=== PATIENT | male | born 1965 | race American Indian/Alaskan Native ===

== ENCOUNTER 2016-08-30 11:57 | Emergency (ER) | payer MEDICARE ==
[2016-08-30 11:57] VITALS: BMI 34.2
[2016-08-30 12:12] VITALS: RESP 18
--- NOTE | 2016-08-30 13:23 | C.PDOC ---
History Of Present Illness 50 year old male special needs patient who is minimally verbal, presents to the ED via EMS accompanied by his mother who states the patient's blood pressure has been high today. Patient was complaining of a headache this morning and currently nods "no" when asked if he has pain. As per mother, she noticed his blood pressure has been on the high side and saw Dr. Sanches yesterday who changed the Norvasc from 5 mg to 10 mg, however the pharmacy still gave them 5mg prompting the visit. Denies fever, vomiting, or any other complaints. Time Seen by Provider: 08/30/16 12:00 Chief Complaint (Nursing): High Blood Pressure History Per: Patient, Family (Mother) Onset/Duration Of Symptoms: Days Current Symptoms Are (Timing): Still Present Past Medical History Reviewed: Historical Data, Nursing Documentation, Vital Signs Vital Signs: Last Vital Signs Temp 98.1 F 08/30/16 13:37 Pulse 75 08/30/16 13:37 Resp 18 08/30/16 13:37 BP 183/71 H 08/30/16 13:37 Pulse Ox 99 08/30/16 13:37 - Medical History PMH: Diabetes, HTN, Hypercholesterolemia, Hypothyroidism, Osteoporosis Surgical History: Endoscopy - [facility] Procedures CATARAC PHACOEMULS/ASPIR (03/04/14) INSERT LENS AT CATAR EXT (03/04/14) Family History: States: Unknown Family Hx - Social History Hx Tobacco Use: No Hx Alcohol Use: No Hx Substance Use: No - Immunization History Hx Tetanus Toxoid Vaccination: No Hx Influenza Vaccination: No Hx Pneumococcal Vaccination: No Review Of Systems Except As Marked, All Systems Reviewed And Found Negative. Constitutional: Positive for: Other (+High Blood pressure) Physical Exam - Physical Exam Appears: Non-toxic, No Acute Distress, Other (+Comfortable) Skin: Normal Color, Warm, Dry Head: Atraumatic, Normacephalic Eye(s): bilateral: Normal Inspection, PERRL, EOMI Oral Mucosa: Moist Chest: Symmetrical, No Deformity Cardiovascular: Rhythm Regular, No Murmur Respiratory: Normal Breath Sounds, No Accessory Muscle Use, No Rales, No Rhonchi , No Wheezing Gastrointestinal/Abdominal: Soft, No Tenderness, No Distention, No Guarding, No Rebound Extremity: Normal ROM Neurological/Psych: Other (+Awake and alert) ED Course And Treatment ECG: Interpreted By Me, Viewed By Me ECG Rhythm: Sinus Rhythm Rate From EC O2 Sat by Pulse Oximetry: 97 (Room air) Pulse Ox Interpretation: Normal Progress Note: EKG ordered and reviewed. Patient treated with Norvasc 5mg. Accucheck done. Disposition Counseled Patient/Family Regarding: Studies Performed, Diagnosis, Need For Followup - Disposition Referrals: Marek Sanches MD [Staff Provider] - Disposition: HOME/ ROUTINE Disposition Time: 13:50 Condition: STABLE Additional Instructions: FOLLOW UP WITH YOUR DOCTOR IN 1-2 DAYS USE 10MG NORVASC DAILY - [facility] FROM PHARMACY RETURN TO ER IF YOU HAVE CONCERNING SYMPTOMS Instructions: Hypertension (ED) Print Language: DANISH - POA Present On Arrival: None - Clinical Impression Clinical Impression: Hypertension - Scribe Statement The provider has reviewed the documentation as recorded by the Scribe Keeley Gardner. Provider Attestation: All medical record entries made by the Scribe were at my direction and personally dictated by me. I have reviewed the chart and agree that the record accurately reflects my personal performance of the history, physical exam, medical decision making, and the department course for this patient. I have also personally directed, reviewed, and agree with the discharge instructions and disposition.
[2016-08-30 13:38] VITALS: BP 183/71; PULSE 75; TEMP 98.1
[2016-08-30 13:54] VITALS: O2SAT 97
--- NOTE | 2016-08-31 21:31 | CARD ---
APPROVED REPORT EKG Measurement Heart [id number] <Conclusion> Normal sinus rhythm Normal ECG
== END 2016-08-30 14:42 | disposition home or self-care (01) ==
LOC: C.ER 11:57
DX: I10 Essential (primary) hypertension (principal)